=== PATIENT | male | born 1990 | race Caucasian/White ===

== ENCOUNTER → 2019-08-01 | Outpatient (CLI) | payer BC ==
[~2019-08-01] MED LIST: CATHETER FLUSH 10 ML SYR IV PRN; HOLD METFORMIN - RECEIVED CONTRAST 20 ML VIAL IV SCH; IOHEXOL 350 MG/ML 100 ML (OMNIPAQUE 350) VIAL IV ONE; NS 100 ML (IVPB) BAG IV ONE
--- NOTE | 2019-08-01 15:11 | Diagnostic Imaging Report ---
PROCEDURE: CT neck soft tissue with contrast. TECHNIQUE: Multiple contiguous axial images were obtained through the neck after the administration of contrast. Auto Exposure Controls were utilized during the CT exam to meet ALARA standards for radiation dose reduction. INDICATION: Jaw swelling. COMPARISON: No prior studies are available for comparison. FINDINGS: Visualized intracranial structures are unremarkable. Posterior nasopharynx and oropharynx are unremarkable. No definite peritonsillar abscess is seen. The parapharyngeal fat planes are preserved. The epiglottis and larynx are unremarkable. No thyroid masses are detected. Bilateral submandibular and parotid glands appear to be symmetric. There is some edema identified in the right facial subcutaneous tissues. There is some thickening along the musculature just superficial to the right mandible with some associated edema. No well-formed fluid collection is identified to suggest abscess formation. There do appear to be multiple dental caries present involving maxillary and mandibular teeth, but no large periapical abscess is identified. There are some enlarged lymph nodes in the right submandibular location just anterior to the right submandibular gland, likely reactive. Evaluation of the paranasal sinuses demonstrates some mucosal thickening of bilateral maxillary sinuses. Mastoids are well aerated. IMPRESSION: Findings consistent with right facial cellulitis, perhaps on the basis of odontogenic disease. No abscess formation is identified. There is reactive right neck lymphadenopathy. Dictated by: Dictated on workstation # [id number]
== END ==
LOC: RAD 13:48
PROVIDERS: ATTEND Nurse Practitioner Family
DX: M27.2 Inflammatory conditions of jaws (principal); K04.7 Periapical abscess without sinus; K08.89 Other specified disorders of teeth and supporting structures; R59.0 Localized enlarged lymph nodes
CPT/HCPCS: 70491